=== PATIENT | female | born 1995 | race Two or more races ===

== ENCOUNTER 2020-02-27 20:54 | Emergency (ER) | payer MEDICAID ==
[~2020-02-27] VITALS: Ht 165.1 cm; Wt 90.7 kg
[2020-02-27] MEDS: MAGNESIUM SULFATE 1GM/100ML 100 ML IV SCH ×2 (22:00→23:00)
[2020-02-27 23:15] LABS: Basophils # (auto) 0 10 ^3/uL (0-0.2); Basophils % (auto) 0.2 % (0.0-2.0); Eosinophils # (auto) 0 10 ^3/uL (0-0.8); Eosinophils % (auto) 0.1 % (0.0-7.0); Hematocrit 41.1 % (36.0-46.0); Hemoglobin 14.1 g/dL (12.2-16.2); Lymphocytes # (auto) 0.6 10 ^3/uL (0.4-5.4); Lymphocytes % (auto) 10.3 % (10.0-50.0); Mean Corpuscular Hemoglobin 30.2 pg (28.0-32.0); Mean Corpuscular Hgb Conc. 34.4 g/dL (32.0-36.0); Mean Corpuscular Volume 87.7 fL (80.0-100.0); Monocytes # (auto) 0.5 10 ^3/uL (0-1.3); Monocytes % (auto) 9.2 % (0.0-12.0); Neutrophils # (auto) 4.7 10 ^3/uL (1.6-8.6); Neutrophils % (auto) 80.2 % (37.0-80.0); Nucleated Red Blood Cells % 0.3 %; Platelet Count (auto) 249 10^3/uL (140-450); Red Blood Cells 4.69 10^6/uL (4.0-5.20); Red Cell Distribution Width 13.6 % (11.8-14.3); White Blood Cell 5.9 10^3/uL (4.4-10.8)
[2020-02-27 23:36] LABS: Albumin 2.5 g/dL (3.4-5.0); Calcium 7.5 mg/dL (8.5-10.1)
[2020-02-27 23:38] LABS: BUN/Creatinine Ratio 8.4
[2020-02-27 23:39] LABS: Lactic Acid w/Reflex 2.5 mmol/L (0.4-2.0)
[2020-02-27 23:44] LABS: Bilirubin, Total 0.5 mg/dL (0.2-1.0); Total Protein 6.2 g/dL (6.4-8.2)
[2020-02-27 23:54] LABS: Uric Acid 10.7 mg/dL (2.6-6.0)
[2020-02-27 23:56] LABS: Magnesium 4.4 mg/dL (1.6-2.6); Potassium 2.9 mmol/L (3.5-5.1)
[2020-02-28] MEDS ORDERED: fentaNYL CITRATE 100 MCG/2 ML VL IV ONE (00:15)
[2020-02-28] MEDS ORDERED: ONDANSETRON HCL 4 MG/2 ML VIAL IV ONE (00:15)
[2020-02-28 00:25] LABS: INR 0.94 (0.9-1.15)
[2020-02-28] MEDS ORDERED: SODIUM CHLORIDE 0.9% 1,000 ML IV ONE (00:45)
[2020-02-28] MEDS: MAGNESIUM SULFATE 1GM/100ML 100 ML IV SCH ×4 (01:00→11:34)
[2020-02-28] MEDS: ceFAZolin 1GM/50ML 100 ML IV SCH ×4 (01:10→16:24)
[2020-02-28] MEDS ORDERED: MAGNESIUM SULFATE 40MG/ML 1,000 ML IV ONE (01:19)
[2020-02-28] MEDS: POTASSIUM CHL 20MEQ/100ML 100 ML IV SCH ×2 (01:39→03:56)
[2020-02-28 16:37] VITALS: BP 134/87
== END 2020-02-28 16:40 | disposition short-term general hospital (02) ==
LOC: EDBD 20:54 → ER 20:58
DX: U07.1 COVID-19 (principal); O15.2 Eclampsia complicating the puerperium; R56.9 Unspecified convulsions
CPT/HCPCS: 36415; 70450; 71045; 80053; 83605; 83615; 83735; 84550; 85025; 85362; 85379; 85384; 85610; 85730; 87426; 96365; 96366; 96368; 96375; 99285; C9803; J0690; J2405; J3010; J3475; J3480; U0003; 99291

== ENCOUNTER 2020-08-24 09:47 | Emergency (ER) | payer MEDICAID ==
[~2020-08-24] VITALS: Ht 165.1 cm; Wt 90.7 kg
[2020-08-24 11:02] VITALS: BP 97/68
== END 2020-08-24 11:37 | disposition home or self-care (01) ==
LOC: ER 09:47
DX: L03.032 Cellulitis of left toe (principal)